=== PATIENT | female | born 1970 | race Caucasian/White ===

== ENCOUNTER 2022-06-28 13:17 | Outpatient (REF) | payer OTHER, SELFPAY ==
--- NOTE | ~2022-06-28 | MM_ITS ---
EXAMINATION: MM SCREENING DIGITAL BREAST TOMOSYNTHESIS, BILATERAL CLINICAL INFORMATION: Screening. Asymptomatic. The lifetime risk of breast cancer based on the Tyrer-Cuzick Model is 18.3%. COMPARISON: Mammography: None. TECHNIQUE: Digital breast tomosynthesis is performed in both the craniocaudal and mediolateral oblique views along with computer-aided detection (CAD). Synthesized 2D images are generated from the tomosynthesis. FINDINGS: There are scattered areas of fibroglandular density (ACR BI-RADS breast composition Category b). RIGHT BREAST: About the superior medial aspect of the breast approximately 4 cm from nipple there is an oval circumscribed density measuring approximately 6 mm in length. About the inferior aspect there is a partially circumscribed approximately 1.1 cm density lying 8.5 cm from nipple. No suspicious calcifications noted. LEFT BREAST: About the deep lateral aspect there is a circumscribed bilobed density approximately 11.5 cm from the nipple. About the upper outer aspect anterior breast there is a 6 mm density present. Further evaluation with spot compression views and possible ultrasound recommended. MM/MM tomosynthesis screening BI IMPRESSION: Bilateral breast densities for further evaluation. ASSESSMENT: BI-RADS 0: Incomplete - Need Additional Imaging Evaluation RECOMMENDATION: Routine annual mammography screening. This patient's information was entered into a reminder system with a target due date for their next mammogram.
== END 2022-06-28 13:18 | disposition home or self-care (01) ==
LOC: HO.MAMMO 13:17
PROVIDERS: PCP Internal Medicine; Visit Provider Internal Medicine
DX: Z12.31 Encounter for screening mammogram for malignant neoplasm of breast (principal)
CPT/HCPCS: 77063; 77067

== ENCOUNTER 2022-08-07 14:46 | Outpatient (REF) | payer OTHER, SELFPAY ==
--- NOTE | ~2022-08-07 | US_ITS ---
EXAMINATION: MM DIAGNOSTIC DIGITAL BREAST TOMOSYNTHESIS, BILATERAL US DIAGNOSTIC ULTRASOUND BREAST, BILATERAL CLINICAL INFORMATION: Recall from screening for bilateral nodularity. TC score 18%. COMPARISON: Mammography: 06/28/2022; outside left mammography 04/09/2019 and bilateral mammography 03/31/2019 ([facility]). TECHNIQUE: Digital breast tomosynthesis is performed. 2D images are generated from the tomosynthesis. The following views are obtained: Bilateral spot CC, bilateral spot ML. Ultrasound of each breast is performed using grayscale imaging and color Doppler without and with harmonics. Left breast is imaged 1:00 through 5:00 position and right breast lower inner quadrant. FINDINGS: There are scattered areas of fibroglandular density (ACR BI-RADS breast composition Category b). Left Mammography: Recent screening mammography notes an asymmetric density central outer breast approximately 11 cm from nipple. The finding is decreased in size from prior outside mammography 2019 and therefore not of clinical significance. There is some minor stable duct ectasia outer anterior left breast with a small benign-appearing circumscribed nodule 3:30 o'clock position measuring approximately 0.5 cm. Left Ultrasound: Left breast ultrasound demonstrates minor minor duct ectasia corresponding to current and prior mammography. No intraluminal echogenicity or color flow. The circumscribed nodule corresponds to a simple cyst 3:00 position 5 cm from nipple measuring approximately 0.5 x 0.3 cm. Right Mammography: Recent screening mammography nodes oval asymmetric density medial breast approximately 8 cm from nipple. This is stable when compared with prior outside mammography 2019 and therefore not of clinical significance. There is a circumscribed benign-appearing nodule 6:00 position mid depth measuring approximately 1.0 x 0.7 x 0.7 cm. Right Ultrasound: The circumscribed benign-appearing oval nodule mid lower right breast is not visualized on ultrasound. There is no cystic or solid mass or architectural abnormality. Short interval follow-up right mammography is recommended. Results are discussed with the patient at time of visit. US/US breast LT limited IMPRESSION: Left: -Incidental benign simple cyst anterior 3:00 position corresponding to small nodule on recent screening. Right: -Benign-appearing faint circumscribed asymmetry mid 6:00 position without ultrasound correlate. ASSESSMENT: BI-RADS 3: Probably Benign RECOMMENDATION: Diagnostic right mammography in 6 months. This patient's information was entered into a reminder system with a target due date for their next mammogram.
--- NOTE | ~2022-08-07 | US_ITS ---
EXAMINATION: MM DIAGNOSTIC DIGITAL BREAST TOMOSYNTHESIS, BILATERAL US DIAGNOSTIC ULTRASOUND BREAST, BILATERAL CLINICAL INFORMATION: Recall from screening for bilateral nodularity. TC score 18%. COMPARISON: Mammography: 06/28/2022; outside left mammography 04/09/2019 and bilateral mammography 03/31/2019 ([facility]). TECHNIQUE: Digital breast tomosynthesis is performed. 2D images are generated from the tomosynthesis. The following views are obtained: Bilateral spot CC, bilateral spot ML. Ultrasound of each breast is performed using grayscale imaging and color Doppler without and with harmonics. Left breast is imaged 1:00 through 5:00 position and right breast lower inner quadrant. FINDINGS: There are scattered areas of fibroglandular density (ACR BI-RADS breast composition Category b). Left Mammography: Recent screening mammography notes an asymmetric density central outer breast approximately 11 cm from nipple. The finding is decreased in size from prior outside mammography 2019 and therefore not of clinical significance. There is some minor stable duct ectasia outer anterior left breast with a small benign-appearing circumscribed nodule 3:30 o'clock position measuring approximately 0.5 cm. Left Ultrasound: Left breast ultrasound demonstrates minor minor duct ectasia corresponding to current and prior mammography. No intraluminal echogenicity or color flow. The circumscribed nodule corresponds to a simple cyst 3:00 position 5 cm from nipple measuring approximately 0.5 x 0.3 cm. Right Mammography: Recent screening mammography nodes oval asymmetric density medial breast approximately 8 cm from nipple. This is stable when compared with prior outside mammography 2019 and therefore not of clinical significance. There is a circumscribed benign-appearing nodule 6:00 position mid depth measuring approximately 1.0 x 0.7 x 0.7 cm. Right Ultrasound: The circumscribed benign-appearing oval nodule mid lower right breast is not visualized on ultrasound. There is no cystic or solid mass or architectural abnormality. Short interval follow-up right mammography is recommended. Results are discussed with the patient at time of visit. US/US breast RT limited IMPRESSION: Left: -Incidental benign simple cyst anterior 3:00 position corresponding to small nodule on recent screening. Right: -Benign-appearing faint circumscribed asymmetry mid 6:00 position without ultrasound correlate. ASSESSMENT: BI-RADS 3: Probably Benign RECOMMENDATION: Diagnostic right mammography in 6 months. This patient's information was entered into a reminder system with a target due date for their next mammogram.
== END 2022-08-07 14:47 | disposition home or self-care (01) ==
LOC: HO.MAMMO 14:46
PROVIDERS: PCP Internal Medicine; Visit Provider Internal Medicine
DX: R92.8 Other abnormal and inconclusive findings on diagnostic imaging of breast (principal)
CPT/HCPCS: 76642; 77062; 77066

== ENCOUNTER 2024-06-09 14:43 | Outpatient (AMB) | payer OTHER, SELFPAY ==
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
[2024-06-09 15:06] VITALS: BP 100/90; PULSE 143; RESP 16; TEMP 36.8; O2SAT 98; BMI 43.3
== END 2024-06-09 15:51 | disposition home or self-care (01) ==
PROVIDERS: PCP Family Medicine; Visit Provider Family Medicine
DX: M19.90 Unspecified osteoarthritis, unspecified site (principal); M25.50 Pain in unspecified joint; E66.01 Morbid (severe) obesity due to excess calories; Z68.41 Body mass index [BMI] 40.0-44.9, adult; M16.9 Osteoarthritis of hip, unspecified; L40.9 Psoriasis, unspecified; Z13.31 Encounter for screening for depression; F41.8 Other specified anxiety disorders; F43.10 Post-traumatic stress disorder, unspecified
CPT/HCPCS: 96127; 99204

== ENCOUNTER 2024-07-08 15:06 | Outpatient (REF) | payer OTHER, SELFPAY ==
[2024-07-08 17:54] LABS: MANUAL DIFF FLAG NO
[2024-07-08 18:12] LABS: Basophils Percent Auto 0.3 % (0-2); Eosinophils Absolute Auto 0.2 X10*3/uL (0.0-0.4); Eosinophils Percent Auto 2.1 % (0-4); Hematocrit 42.8 % (37.0-47.0); Hemoglobin 14.7 g/dl (12.0-16.0); Imm Gran Abs Auto 0.03 X10*3/uL (0.00-0.03); Imm Gran Pct Auto 0.3 % (0.0-0.4); Lymphocytes Absolute Auto 1.1 X10*3/uL (1.2-4.9); Lymphocytes Percent Auto 10.4 % (20-40); Mean Corpuscular HGB Conc 34.3 g/dl (31.0-35.0); Mean Corpuscular Hemoglobin 31.1 pg (27.0-33.0); Mean Corpuscular Volume 90.5 fL (80.0-98.0); Mean Platelet Volume 9.9 fL (9.4-12.3); Monocytes Absolute Auto 1.1 X10*3/uL (0.1-1.2); Monocytes Percent Auto 10.4 % (2-11); Neutrophils Absolute Auto 8.2 x10*3/uL (2.0-8.3); Neutrophils Percent Auto 76.5 % (45-73); Platelet Count 293 X10*3/uL (160-400); Red Blood Count 4.73 X10*6/uL (4.20-5.50); Red Cell Distribution Width 15.9 % (11.0-16.0); White Blood Count 10.7 X10*3/uL (4.8-10.8)
[2024-07-08 19:08] LABS: Erythrocyte Sedimentation Rate 25 MM/HR (0-20)
[2024-07-08 19:19] LABS: Alanine Aminotransferase 34 U/L (0-31); Albumin Level 4.3 g/dL (3.5-5.0); Alkaline Phosphatase 101 U/L (39-117); Anion Gap 18 (12-20); Aspartate Amino Transferase 52 U/L (5-31); Bilirubin Total 1.9 mg/dL (0.0-1.0); Blood Urea Nitrogen 11 mg/dL (9-16); Calcium 9.7 mg/dL (8.4-10.2); Carbon Dioxide 23 mmol/L (22-29); Chloride 102 mmol/L (96-108); Cholesterol 209 mg/dL (<200); Estimated Glomerular Filt Rate 60; Glucose Fasting 110 mg/dL (60-99); HDL Cholesterol 70 mg/dL (>40); LDL Cholesterol Calculated 120 mg/dL (<100); Potassium 3.5 mmol/L (3.3-5.1); Sodium 139 mmol/L (135-145); Total Protein 8.2 g/dL (6.5-8.0); Triglycerides 97 mg/dL (<150)
[2024-07-08 19:34] LABS: TSH reflex Free T4 1.61 uIU/mL (0.32-4.0)
[2024-07-08 20:55] LABS: Rheumatoid Factor 15.3 IU/mL (<15.0)
[2024-07-08 21:16] LABS: Prostate Specific Antigen Scr < 0.10 ng/mL
[2024-07-09 20:53] LABS: CRP High Sensitivity 8.6 mg/L
[2024-07-13 12:09] LABS: Anti Nuclear Antibody Screen NEGATIVE (NEGATIVE)
== END 2024-07-08 15:07 | disposition home or self-care (01) ==
LOC: HO.WFDLDS 15:06
PROVIDERS: Visit Provider Family Medicine
DX: Z00.00 Encounter for general adult medical examination without abnormal findings (principal); M25.50 Pain in unspecified joint
CPT/HCPCS: 36415; 80053; 80061; 84153; 84443; 85025; 85652; 86038; 86141; 86431

== ENCOUNTER 2024-07-22 17:23 | Outpatient (REF) | payer OTHER, SELFPAY ==
[2024-07-22 17:36] LABS: Appearance Urine Turbid; Color Urine BROWN; Glucose Urine UA Negative (Negative); Leukocyte Esterase Urine Small (1+) (Negative); Nitrite Urine Positive (Negative); Specific Gravity - Urine 1.025 (1.005-1.025); UMIC TRIGGER UA YES; Urine Blood Negative (Negative); Urine Ketones Trace mg/dL (Negative); Urine Protein 30 (1+) mg/dL (Neg-Trace)
[2024-07-22 17:56] LABS: Bacteria Urine 2+ (None Seen); Calcium Oxalate Crystals Urine Present; Hyaline Casts Urine 0-2 /LPF (0-2); Squamous Epithelial Cell Urine >20 /HPF (0-2); WBC Urine >50 /HPF (0-5)
[2024-07-22 18:04] LABS: Microalbum/Creatinine Ratio Ur 14.4 ug/mg cr (<30)
== END 2024-07-22 17:24 | disposition home or self-care (01) ==
LOC: HO.LNP 17:23
PROVIDERS: Visit Provider Family Medicine
DX: I10 Essential (primary) hypertension (principal)
CPT/HCPCS: 81001; 82043; 82570

== ENCOUNTER 2024-07-23 14:19 | Outpatient (AMB) | payer OTHER, SELFPAY ==
--- NOTE | 2024-07-23 14:25 | A.OFFPC_ITS ---
Vital Signs 07/23/24 14:32 Height 5 ft 8 in Weight 280 lb 4 oz BMI 42.6 BP 120/80 Blood Pressure Location Lt brachial Position Sitting Respiration 16 Pulse 126 H Pulse Source Pulse Oximeter Temp 97.6 F Temp Source Tympanic Pulse Oximetry (%) 96 Oxygen Delivery Method Room Air Intake Visit Reasons: CPE with f/u labs and health maint. 30 mins Intake Note: CPE Is last menstrual period known: No Post menopausal: Yes Patient : No Allergies No Known Allergies Allergy (Verified 07/23/24 14:26) Medication List - Last Reconciled 07/23/24 by Misbah Huertas MD duloxetine (Cymbalta) 20 mg PO BID 30 days naproxen 500 mg PO BID PRN 30 days omeprazole 20 mg PO DAILY 30 days sulfamethoxazole-trimethoprim 800-160 mg (Bactrim DS) 1 tab PO Q12H 5 days Tobacco use date assessed: 07/23/24 Dental Screening Dental Screen Date: 07/23/24 Did you have a dental visit in the last 12 months?: No Did you have a dental problem in the last 6 months where you did not have access to dental care?: Yes HPI CPE with f/u labs and health maint. 30 mins HPI Details 54 y/o female presents for an extended e xam with f/u labs and health maintenance. Labs drawn 07/08/24. Reviewed labs with pt. Elevated liver enzymes - AST 52, ALT 34. CRP elevated at 8.6. Triglycerides 97. TC 209. LDL 120. HDL 70. Elevated fasting glucose of 110. A1c today 07/23/24 is 4.3%. Blood pressure today 120/80, 126p. She notes she drinks plenty of water. 2+ urine bacteria seen. She notes some days of urinary frequency. She reports decreased hearing. HPI Comments History of Present Illness Details Documentation assistance for Misbah Huertas MD, was provided by Bart Clark,? Manufacturing Technologist on 07/23/2024 at 2:45 PM EST. I, Dr. Huertas, have read, observed, and verified documentation. [facility] Medical History (Updated 07/23/24 @ 15:18 by Bart Clark) Depression Anxiety Psoriasis High cholesterol High blood pressure Family History (Updated 06/09/24 @ 15:23 by Ab Wilson MA) Father Asthma High blood pressure High cholesterol Diabetes Cardiovascular disease Mother High blood pressure High cholesterol Diabetes Lung cancer Alcohol abuse Social History (Updated 07/23/24 @ 14:28 by Ab Wilson MA) Housing: House Patient Tobacco Use Status: Never used Tobacco e-Cigarette/Vaping Use: Currently Using Second Hand Smoke Exposure: No service: No Current occupational status: unemployed Current occupational exposures/hazards: No Cognitive needs: No Hearing needs: No Vision needs: Yes Questionnaire PHQ-9 Over the last 2 weeks, how often have you been bothered by any of the following problems? 1. Little interest or pleasure in doing things: several days 2. Feeling down, depressed, or hopeless: nearly every day 3. Trouble falling or staying asleep, or sleeping too much: nearly every day 4. Feeling tired or having little energy: nearly every day 5. Poor appetite or overeating: not at all 6. Feeling bad about yourself - or that you are a failure or have let yourself or your family down: not at all 7. Trouble concentrating on things, such as reading the newspaper or watching television: not at all 8. Moving or speaking so slowly that other people could have noticed. Or the opposite - being so fidgety or restless that you have been moving around a lot more than usual: not at all 9. Thoughts that you would be better off or of hurting yourself in some way: not at all Total score: 10 Depression Screening Interpretation: Positive Depression Screening Done: Yes 73173 - PHQ-9 Billing: Yes Source: Developed by Drs. Nadeem Diana, Glenys Aaron, Zohaib King and colleagues, with an educational rasheeda from [employer]. Thrive Questionnaire Date Thrive assessed: 07/23/24 I am a: Patient What is your living situation today?: I have a steady place to live Within the past 12 months, did the food you bought not last and you didn't have the money to get more?: Never true Within the past 12 months, did you worry whether your food would run out before you got money to buy more?: Never true Do you have trouble paying for medicines?: No Do you have trouble getting transportation to medical appointments?: No Do you have trouble paying your heating and electricity bill?: No Do you have trouble taking care of your child, family member or friend?: No Do you have trouble with day-to-day activities such as bathing, preparing meals, shopping, managing finances, etc.?: Yes Are you currently unemployed and looking for a job?: No Are you interested in more education?: Yes Please select the resources that you would like help with: None Currently or been in a relationship where the following occur: No concerns reported THRIVE Score: 0 AUDIT C Alcohol Use Questionnaire (AUDIT-C) 1. How often do you have a drink containing alcohol?: 2-4 times a month 2. How many drinks containing alcohol do you have on a typical day when you are drinking?: 3 or 4 3. How often do you have six or more drinks on one occasion?: Never Total Score: 3 ANA-7 AMB Questionnaire ANA-7 Date ANA - 7 assessed: 07/23/24 Feeling nervous, anxious, or on edge: 1 = Several days Not being able to stop or control worryin = Not at all Worrying too much about different things: 1 = Several days Trouble relaxin = Nearly every day Being so restless that it is hard to sit still: 0 = Not at all Becoming easily annoyed or irritable: 0 = Not at all Feeling afraid as if something awful might happen: 0 = Not at all Total ANA-7 score (0-4 normal; 5-9 mild; 10-14 moderate; 15-21 severe): 5 Source: Developed by Drs. Nadeem Diana, Glenys Aaron, Zohaib King and colleagues, with an educational rasheeda from [employer]. ANA-7 Assessment Billing ANA-7 Assessment Tool: ANA-7 Assessment 82863 Review of Systems Const Denies chills, Denies fatigue, Denies fever(s), Denies headache(s) and Denies weakness Eyes Denies change in vision ENT Denies dizziness, Denies headache(s), Denies hearing loss, Denies nasal congestion, Denies sinus pain, Denies sinus pressure and Denies sore throat Card Denies chest pain, Denies lightheadedness, Denies dyspnea and Denies other (pal pitations) Resp Denies cough, Denies dyspnea and Denies wheezing GI Denies abdominal pain, Denies melena, Denies hematochezia, Denies change in bowel habits, Denies dyspepsia and Denies nausea Details: Urinary frequency Denies hematuria and Denies dysuria Musc Denies abnormal gait, Denies myalgias, Denies arthralgias, Denies numbness and Denies tingling Skin/Breast Denies rash, Denies unusual bruising and Denies wounds Neuro Denies abnormal gait, Denies dizziness, Denies headache(s), Denies memory loss, Denies numbness, Denies Sensory deficit (Neuro), Denies tingling and Denies weakness Psych Denies anxiety, Denies depression and Denies memory loss Endo Denies cold intolerance, Denies fatigue, Denies heat intolerance, Denies polydipsia and Denies polyuria Scotty/Lymph Denies easy bleeding and Denies easy bruising Aller/Immun Denies wheezing Physical exam (Primary Care) Vital Signs: Last Vital Signs Temp 97.6 F 07/23/24 14:32 Pulse 126 H 07/23/24 14:32 Resp 16 07/23/24 14:32 BP 120/80 07/23/24 14:32 Pulse Ox 96 07/23/24 14:32 Oxygen Delivery Method Room Air 07/23/24 14:32 BMI result Body Mass Index 42.6 Tobacco/Smoking Status: Tobacco use Status Tobacco use date assessed 07/23/24 07/23/24 14:36 Patient Tobacco Use Status Never used Tobacco 07/23/24 14:36 e-Cigarette/Vaping Use Currently Using 07/23/24 14:36 PHQ-9: PHQ-9 Score PHQ-9: Total score 10 07/23/24 14:37 Depression Screening Interpretation: Positive Thrive Assessment: Date of Thrive Assessment Date Thrive assessed 07/23/24 07/23/24 14:36 Currently or been in a relationship where the following occur: No concerns reported Const General: no acute distress, well developed, alert and awake Nutritional Appearance: well nourished and obese morbidly obese Orientation/consciousness: patient oriented x3 HENMT Head: Yes normocephalic and Yes atraumatic Ears: hearing grossly normal bilaterally and TM's normal bilaterally General nose exam: Normal external nose present and Normal nares present Mouth: Normal oral and palatal mucosa present and moist mucous membranes Teeth and gingiva: dentition normal Throat: Yes posterior oropharynx normal Eyes General: appearance normal, both eyes and all related structures Pupils: Equal, round and reactive pupils present and Pupil accommodation reflex normal EOM: EOMs intact bilaterally Neck Neck: Yes normal visual inspection, Yes no lymphadenopathy and Yes trachea midline Thyroid: Thyroid normal Carotids: no bruits Lymphatic: no lymphadenopathy noted Chest Chest palpation & inspection: normal inspection of the chest Resp Effort & Inspection: normal respiratory effort Auscultation: clear to auscultation bilaterally Cardio Rate: regular rate Rhythm: regular rhythm Heart sounds: S1 normal heart sound present, S2 normal heart sound present, no gallops, no murmurs and no rubs Bruits: no abdominal aortic bruits and no carotid bruits GI Palpation (GI): No Abdominal aortic bruit present, Soft to palpation, nontender, No hepatosplenomegaly present and No Rebound tenderness present Auscultation: normal bowel sounds General: Yes no CVA tenderness Back/Spine/Pelvis Back: no CVA tenderness Cervical Spine: cervical ROM normal and No Cervical spine tenderness Thoracic/Lumbar Spine: thoraco-lumbar ROM normal, No pain with thoraco-lumbar ROM, No thoracic spinal tenderness and No lumbar spinal tenderness Skin Lesions: no lesions Rashes: no rashes Trauma: no lacerations or abrasions Wounds: no wounds Nails: normal Neuro General: patient oriented x3 Cranial nerves: Yes Equal, round and reactive pupils present Cognition (Neuro): normal cognition Gait exam (Neuro): Normal gait present Motor exam (neuro): 5/5 motor strength present throughout Sensory Exam: No Sensory deficit (Neuro) Deep tendon reflexes (DTR's): Right patellar reflex intensity grade: 2+ and Left patellar reflex intensity grade: 2+ Extrem General: Yes normal to inspection and No edema Psych Appearance: grossly normal Affect: normal affect Attitude: cooperative Thought process: Normal thought process present Assessment and Plan Assessment & Plan (1) Tachycardia: Code(s): R00.0 - Tachycardia, unspecified Plan: Tachycardia EKG?shows: ?Normal?sinus?rh ythm?at?87?be?p.m.?while?lying?down,?normal?axis,?no?hypertrophy,?no?ST-T-wave?c hanges. Patient?is?working?on?good?hydration May?have?an?element?of?alcohol?withdrawal. (2) Elevated liver enzymes: Code(s): R74.8 - Abnormal levels of other serum enzymes Plan: Mildly?elevated?liver?enzymes. History?of?alcohol?misuse Had?referred?patient?to comprehensive?Care?Clinic Hydrate?well Work?at?weight?loss Avoid?alcohol Will?repeat?in?a?few?months?and?if?labs?are?the?same?or?higher,?will?check ?an?ultrasound (3) High cholesterol: Code(s): E78.00 - Pure hypercholesterolemia, unspecified Plan: LDL?cholesterol?is?too?high.??Goal?is?less?than?100 Encouraged?lifestyle?changes Will?recheck?at?next?blood?draw (4) Gastritis: Code(s): K29.70 - Gastritis, unspecified, without bleeding Plan: Trial?omeprazole Patient?is?referred?to?Gastroenterology (5) Polyarthralgia: Code(s): M25.50 - Pain in unspecified joint Plan: Polyarthralgia?as?well?as?history?of?psoriasis. Possible?psoriatic?arthritis Inflammatory?markers?mildly?elevated Referred?to?Rheumatology (6) Alcohol use: Code(s): Z78.9 - Other specified health status Plan: Had?referred?patient?to?comprehensive Care?Clinic. Patient?has problems?with?phone?service Referred?again.??Please?try?to?reach?out?to?patient?again (7) Breast cancer screening by mammogram: Code(s): Z12.31 - Encounter for screening mammogram for malignant neoplasm of breast Plan: Overdue?for?mammogram Ordered (8) Screening for cervical cancer: Code(s): Z12.4 - Encounter for screening for malignant neoplasm of cervix Plan: Overdue?for?Pap?smear Patient?is?apprehensive?regarding?this - may?need?conscious?sedation/sedation Referred?to?salesperson hearing aids (9) Screening for colon cancer: Code(s): Z12.11 - Encounter for screening for malignant neoplasm of colon Plan: Overdue?for?colonoscopy Referred?to?Gastroenterology (10) Osteoarthritis of hip: Code(s): M16.9 - Osteoarthritis of hip, unspecified Plan: Bilateral?hip?pain?and?patient?notes?history?of?bilateral?hip?osteoarthritis X-rays?were?ordered Patient?did?not?realize?that?she?could?go?get?these?done without?being?scheduled. She?will?get?her?x-rays?done?prior?to?next?visit (11) Decreased hearing: Code(s): H91.90 - Unspecified hearing loss, unspecified ear Plan: Referred?for?audiology?test (12) Bacteria in urine: Code(s): R82.71 - Bacteriuria Plan: Likely?UTI Start?Bactrim?DS?x5?days Hydrate?well (13) Elevated fasting glucose: Code(s): R73.01 - Impaired fasting glucose Plan: Elevated?fasting?blood?sugar?but?A1c?is?less?than?5.0 Will?recheck?fasting?blood?sugar?with?her?next?blood?draw (14) Adult general medical exam: Code(s): Z00.00 - Encounter for general adult medical examination without abnormal findings Plan: 54-year-old?female?presents?for?an?extended?exam Orders: Orders AMB EKG-In Office Today R00.0 - Tachycardia, unspecified MM tomosynthesis screening BI Today Z12.31 - Encounter for screening mammogram for malignant neoplasm of breast Comprehensive [facility]. Panel Fast Today R74.8 - Abnormal levels of other serum enz ymes, Z00.00 - Encounter for general adult medical examination without abnormal findings AMB Hemoglobin A1c Today Z13.9 - Encounter for screening, unspecified Lipid Panel Today E78.00 - Pure hypercholesterolemia, unspecified, Z00.00 - Encounter for general adult medical examination without abnormal findings Referrals 2 Psychiatry Outpatient Consultation Service F41.8 - Other specified anxiety disorders, F43.10 - Post-traumatic stress disorder, unspecified, Z78.9 - Other specified health status Rheumatology Referral L40.9 - Psoriasis, unspecified, M25.50 - Pain in unspecified joint Gastroenterology Referral Z12.11 - Encounter for screening for malignant neoplasm of colon Gastroenterology Referral K29.70 - Gastritis, unspecified, without bleeding, R74.8 - Abnormal levels of other serum enzymes, Z12.11 - Encounter for screening for malignant neoplasm of colon Audiology Referral H91.90 - Unspecified hearing loss, unspecified ear Addiction Medicine Referral Z78.9 - Other specified health status 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9 Breast cancer screening by mammogram Z12.31 Screening for cervical cancer Z12.4 Screening for colon cancer Z12.11 Osteoarthritis of hip M16.9 Decreased hearing H91.90 Bacteria in urine R82.71 Elevated fasting glucose R73.01 Adult general medical exam Z00.00 Additional Codes ANA-7 Assessment Billing - ANA-7 Assessment Tool: ANA-7 Assessment [id number] ([id number])
[2024-07-23 14:32] VITALS: BP 120/80; PULSE 126; RESP 16; TEMP 36.4; O2SAT 96; BMI 42.6
== END 2024-07-23 15:32 | disposition home or self-care (01) ==
PROVIDERS: PCP Family Medicine; Visit Provider Family Medicine
DX: Z00.00 Encounter for general adult medical examination without abnormal findings (principal); R00.0 Tachycardia, unspecified; R74.8 Abnormal levels of other serum enzymes; E78.00 Pure hypercholesterolemia, unspecified; K29.70 Gastritis, unspecified, without bleeding; M25.50 Pain in unspecified joint; Z78.9 Other specified health status; M16.9 Osteoarthritis of hip, unspecified; R82.71 Bacteriuria; R73.01 Impaired fasting glucose
CPT/HCPCS: 93000; 99214; 99396

== ENCOUNTER → 2024-08-13 14:00 | Outpatient (BNV) | payer OTHER, SELFPAY | PROVIDERS: PCP Family Medicine; Visit Provider Internal Medicine | DX: Z12.31 Encounter for screening mammogram for malignant neoplasm of breast (principal) | CPT/HCPCS: 77063; 77067 ==

== ENCOUNTER 2024-08-13 14:01 | Outpatient (REF) | payer OTHER, SELFPAY ==
--- NOTE | ~2024-08-13 | MM_ITS ---
EXAMINATION: MM SCREENING DIGITAL BREAST TOMOSYNTHESIS, BILATERAL CLINICAL INFORMATION: Screening. Asymptomatic. COMPARISON: Mammography: Comparison is made with available priors TECHNIQUE: Digital breast mammography with tomosynthesis is performed in both the craniocaudal and mediolateral oblique views along with computer-aided detection (CAD). FINDINGS: There are scattered areas of fibroglandular density (ACR BI-RADS breast composition Category b). There are no significant masses, abnormal calcifications, or other abnormalities. MM/MM tomosynthesis screening BI IMPRESSION: No mammographic evidence of malignancy. ASSESSMENT: BI-RADS BI-RADS 1 - Negative RECOMMENDATION: Routine annual mammography screening. 1 year F/U This examination should not preclude the clinical evaluation of a suspicious palpable abnormality. This patient's information was entered into a reminder system with a target due date for their next mammogram. Electronically signed by: Jeni Carcamo DO 08/25/2024 01:52 PM EDT
== END 2024-08-13 14:02 | disposition home or self-care (01) ==
LOC: HO.MAMMO 14:01
PROVIDERS: PCP Family Medicine; Visit Provider Family Medicine
DX: Z12.31 Encounter for screening mammogram for malignant neoplasm of breast (principal)
CPT/HCPCS: 77063; 77067

== ENCOUNTER 2024-08-24 12:58 | Outpatient (AMB) | payer OTHER, SELFPAY ==
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
== END 2024-08-24 14:01 | disposition home or self-care (01) ==
PROVIDERS: PCP Family Medicine; Visit Provider Clinical Nurse Specialist Psychiatric/Mental Health
DX: F10.10 Alcohol abuse, uncomplicated (principal); F43.10 Post-traumatic stress disorder, unspecified; F32.9 Major depressive disorder, single episode, unspecified
CPT/HCPCS: 90792

== ENCOUNTER 2024-08-24 12:58 | Outpatient (REF) | payer OTHER, SELFPAY ==
--- NOTE | ~2024-08-24 | XR_ITS ---
EXAMINATION: Single view pelvis and bilateral hips CLINICAL INFORMATION: Osteoarthritis of hip, unspecified M16.9. Patient states pain for the past 10 years but no known injury COMPARISON: None TECHNIQUE: AP view of the pelvis and AP and lateral views of each hip were obtained. FINDINGS: Right hip: Severe osteoarthritis with marked joint space narrowing subchondral sclerosis and probable subchondral cystic change and some flattening of the femoral head likely due to chronic impaction from the arthrosis versus concomitant avascular necrosis. Left hip: Moderate osteoarthritis manifested by joint space narrowing and marginal osteophytes. Degenerative changes of the symphysis pubis. Remaining bone and joints in the pelvis normal. Probable postsurgical changes at the lumbosacral junction. Suspect prior spinal fusion surgery XR/XR hips JIMMY min 3V IMPRESSION: RIGHT HIP: Severe osteoarthritis. Flattening of the femoral head likely due to chronic impaction related to severe arthrosis. Cannot exclude concomitant avascular necrosis with osteochondral collapse LEFT HIP: Moderate osteoarthritis. Electronically signed by: Angel Casarez MD 10/26/2024 10:01 AM RIVKA QUINONES
== END 2024-08-24 12:59 | disposition home or self-care (01) ==
LOC: HO.XRAY 12:58
PROVIDERS: Absent Provider Family Medicine; PCP Family Medicine; Visit Provider Clinical Nurse Specialist Psychiatric/Mental Health
DX: M16.9 Osteoarthritis of hip, unspecified (principal); F10.10 Alcohol abuse, uncomplicated; F43.10 Post-traumatic stress disorder, unspecified; F32.9 Major depressive disorder, single episode, unspecified
CPT/HCPCS: 73522; 90792

== ENCOUNTER 2025-03-28 12:01 | Outpatient (AMB) | payer OTHER, SELFPAY ==
--- NOTE | 2025-03-28 12:27 | A.OFFPC_ITS ---
Vital Signs 03/28/25 12:31 Height 5 ft 8 in Weight 282 lb BMI 42.9 BP 120/80 Blood Pressure Location Lt brachial Position Sitting Respiration 16 Pulse 110 H Pulse Source Pulse Oximeter Temp 98.7 F Temp Source Oral Pulse Oximetry (%) 95 Oxygen Delivery Method Room Air Intake Visit Reasons: REASON FOR VISIT f/u elevated liver enzymes, labs Intake Note: patient was scheduled for lab review she did not get labs done pt will get labs done today. she would also like to follow up on nasal discomfort/ blockage. Allergies No Known Allergies Allergy (Verified 07/23/24 14:26) Tobacco use date assessed: 07/23/24 Dental Screening Dental Screen Date: 07/23/24 HPI REASON FOR VISIT f/u elevated liver enzymes, labs HPI Details 54 y/o female presents to f/u elevated l iver enzymes, labs. No recent labs to review. Hx of polyarthalgia, psoriasis. Complaints of ongoing psoriasis on her arms, forearms. Has complaints of some nasal irritation. HPI Comments History of Present Illness Details Documentation assistance for Misbah Huertas MD, was provided by Bart Clark,? [employer] on 03/28/2025 at 1:13 PM EST. I, Dr. Huertas, have read, observed, and verified documentation. ?? [facility] Medical History (Updated 03/28/25 @ 13:17 by Bart Clark) Depression Anxiety Psoriasis High cholesterol High blood pressure Family History (Updated 06/09/24 @ 15:23 by YASIR Encinas) Father Asthma High blood pressure High cholesterol Diabetes Cardiovascular disease Mother High blood pressure High cholesterol Diabetes Lung cancer Alcohol abuse Social History (Updated 07/23/24 @ 14:28 by YASIR Encinas) Housing: House Patient Tobacco Use Status: Never used Tobacco e-Cigarette/Vaping Use: Currently Using Second Hand Smoke Exposure: No service: No Current occupational status: unemployed Current occupational exposures/hazards: No Cognitive needs: No Hearing needs: No Vision needs: Yes Questionnaire PHQ-9 Over the last 2 weeks, how often have you been bothered by any of the following problems? 1. Little interest or pleasure in doing things: nearly every day 2. Feeling down, depressed, or hopeless: nearly every day 3. Trouble falling or staying asleep, or sleeping too much: nearly every day 4. Feeling tired or having little energy: nearly every day 5. Poor appetite or overeating: nearly every day 6. Feeling bad about yourself - or that you are a failure or have let yourself or your family down: several days 7. Trouble concentrating on things, such as reading the newspaper or watching television: more than half the days 8. Moving or speaking so slowly that other people could have noticed. Or the opposite - being so fidgety or restless that you have been moving around a lot more than usual: not at all 9. Thoughts that you would be better off or of hurting yourself in some way: not at all Total score: 18 Source: Developed by Drs. Nadeem Diana, Glenys Aaron, Zohaib King and colleagues, with an educational rasheeda from [employer]. Thrive Questionnaire Date Thrive assessed: 07/23/24 I am a: Patient What is your living situation today?: I have a steady place to live Within the past 12 months, did the food you bought not last and you didn't have the money to get more?: Never true Within the past 12 months, did you worry whether your food would run out before you got money to buy more?: Never true Do you have trouble paying for medicines?: No Do you have trouble getting transportation to medical appointments?: No Do you have trouble paying your heating and electricity bill?: No Do you have trouble taking care of your child, family member or friend?: No Do you have trouble with day-to-day activities such as bathing, preparing meals, shopping, managing finances, etc.?: No Are you currently unemployed and looking for a job?: I choose not to answer this question Are you interested in more education?: I choose not to answer this question Please select the resources that you would like help with: None Currently or been in a relationship where the following occur: No concerns reported THRIVE Score: 0 AUDIT C Alcohol Use Questionnaire (AUDIT-C) 1. How often do you have a drink containing alcohol?: 2-4 times a month 2. How many drinks containing alcohol do you have on a typical day when you are drinking?: 1 or 2 3. How often do you have six or more drinks on one occasion?: Never Total Score: 2 ANA-7 AMB Questionnaire ANA-7 Date ANA - 7 assessed: 07/23/24 Feeling nervous, anxious, or on edge: 1 = Several days Not being able to stop or control worryin = Nearly every day Worrying too much about different things: 2 = More than half the days Trouble relaxin = Several days Being so restless that it is hard to sit still: 0 = Not at all Becoming easily annoyed or irritable: 3 = Nearly every day Feeling afraid as if something awful might happen: 2 = More than half the days Total ANA-7 score (0-4 normal; 5-9 mild; 10-14 moderate; 15-21 severe): 12 Source: Developed by Drs. Nadeem Diana, Glenys Aaron, Zohaib King and colleagues, with an educational rasheeda from [employer]. Review of Systems Const Denies chills, Denies fatigue, Denies fever(s), Denies headache(s) and Denies weakness ENT Denies dizziness and Denies headache(s) Card Denies dyspnea Resp Denies cough, Denies dyspnea, Denies wheezing and Denies other (shortness of breath) Musc Denies numbness and Denies tingling Neuro Denies dizziness, Denies headache(s), Denies numbness, Denies tingling and Denies weakness Psych Denies anxiety and Denies depression Endo Denies fatigue Aller/Immun Denies wheezing Physical exam (Primary Care) Vital Signs: Last Vital Signs Temp 98.7 F 03/28/25 12:31 Pulse 110 H 03/28/25 12:31 Resp 16 03/28/25 12:31 BP 120/80 03/28/25 12:31 Pulse Ox 95 03/28/25 12:31 Oxygen Delivery Method Room Air 03/28/25 12:31 BMI result Body Mass Index 42.9 Tobacco/Smoking Status: Tobacco use Status Tobacco use date assessed 07/23/24 03/28/25 12:27 Patient Tobacco Use Status Never used Tobacco 03/28/25 12:27 e-Cigarette/Vaping Use Currently Using 03/28/25 12:27 PHQ-9: PHQ-9 Score PHQ-9: Total score 18 03/28/25 12:47 Thrive Assessment: Date of Thrive Assessment Date Thrive assessed 07/23/24 03/28/25 12:27 Currently or been in a relationship where the following occur: No concerns reported Const General: well developed; No acute distress Nutritional Appearance: well nourished and obese morbidly obese Orientation/consciousness: patient oriented x3 HENMT Head: Yes normocephalic and Yes atraumatic Eyes General: appearance normal, both eyes and all related structures Pupils: Equal, round and reactive pupils present EOM: EOMs intact bilaterally Resp Effort & Inspection: normal respiratory effort Neuro General: patient oriented x3 and gait normal Cranial nerves: Yes Equal, round and reactive pupils present Psych Affect: normal affect Coding Level of Care Code Est Pt Level 4 (36646) Diagnoses Polyarthralgia M25.50 Psoriasis L40.9 Elevated liver enzymes R74.8 Nasal discomfort J34.89 Breast cancer screening by mammogram Z11.09 Osteoarthritis of hip M16.9 Assessment & Plan Assessment & Plan (1) Polyarthralgia: Code(s): M25.50 - Pain in unspecified joint Category: Medical Plan: Polyarthralgia?and?psoriasis Had?ordered?inflammatory?markers?but?she?has?not?gotten?labs?drawn?yet.??Encoura ged?her?to?get?her?labs?drawn Had?referred?her?to?Rheumatology?and?she?has?appointment?in?October. Would?ask?for?sooner?appointment?if?indicated?by?labs (2) Psoriasis: Code(s): L40.9 - Psoriasis, unspecified Category: Medical Plan: As?above Also?has?worsened?psoriasis?arms. Will?try?a?steroid?cream (3) Elevated liver enzymes: Code(s): R74.8 - Abnormal levels of other serum enzymes Category: Medical Plan: Labs?are?ordered.??Encouraged?her?to?get?these?drawn (4) Nasal discomfort: Code(s): J34.89 - Other specified disorders of nose and nasal sinuses Category: Medical Plan: Trial?nasal?steroid (5) Breast cancer screening by mammogram: Code(s): Z11.09 - Encounter for screening mammogram for malignant neoplasm of breast Category: Medical Plan: Mammogram?negative?for?malignancy Continue?annual?screening (6) Osteoarthritis of hip: Code(s): M16.9 - Osteoarthritis of hip, unspecified Category: Medical Plan: X-ray?shows?severe?osteoarthritis?of?the?hip?and?can?not?rule?out?of?other abnormalities?such?as?avascular?necrosis Referred?to?Ortho Orders: Referrals Orthopedics Referral M16.9 - Osteoarthritis of hip, unspecified Medications: New fluticasone propionate 50 mcg/actuation (Flonase Allergy Relief) administer into each nostril 1 spray intranasal Q12H 30 days 16 grams 2RF triamcinolone acetonide 0.5% 1 appl topical BID 15 days 45 grams 2RF
[2025-03-28 12:31] VITALS: BP 120/80; PULSE 110; RESP 16; TEMP 37.1; O2SAT 95; BMI 42.9
== END 2025-03-28 13:04 | disposition home or self-care (01) ==
LOC: HO.HMCFM 12:01
PROVIDERS: PCP Family Medicine; Visit Provider Family Medicine
DX: M25.50 Pain in unspecified joint (principal); L40.9 Psoriasis, unspecified; R74.8 Abnormal levels of other serum enzymes; J34.89 Other specified disorders of nose and nasal sinuses; Z12.31 Encounter for screening mammogram for malignant neoplasm of breast; M16.9 Osteoarthritis of hip, unspecified

== ENCOUNTER → 2025-03-28 12:01 | Outpatient (BNVA) | payer OTHER, SELFPAY | PROVIDERS: PCP Family Medicine; Visit Provider Family Medicine | DX: M25.50 Pain in unspecified joint (principal); L40.9 Psoriasis, unspecified; R74.8 Abnormal levels of other serum enzymes; J34.89 Other specified disorders of nose and nasal sinuses; M16.9 Osteoarthritis of hip, unspecified | CPT/HCPCS: 99212 ==

== ENCOUNTER 2025-04-07 13:30 | Outpatient (REF) | payer OTHER, SELFPAY ==
[2025-04-07 17:51] LABS: Alanine Aminotransferase 23 U/L (0-31); Albumin Level 4.5 g/dL (3.5-5.0); Alkaline Phosphatase 81 U/L (39-117); Anion Gap 16 (12-20); Aspartate Amino Transferase 35 U/L (5-31); Bilirubin Total 1.2 mg/dL (0.0-1.0); Blood Urea Nitrogen 11 mg/dL (9-16); Carbon Dioxide 22 mmol/L (22-29); Chloride 107 mmol/L (96-108); Cholesterol 186 mg/dL (<200); Estimated Glomerular Filt Rate > 60; Glucose Fasting 90 mg/dL (60-99); HDL Cholesterol 49 mg/dL (>40); LDL Cholesterol Calculated 117 mg/dL (<100); Potassium 3.7 mmol/L (3.3-5.1); Sodium 141 mmol/L (135-145); Total Protein 7.9 g/dL (6.5-8.0); Triglycerides 104 mg/dL (<150)
== END 2025-04-07 13:31 | disposition home or self-care (01) ==
LOC: HO.WFDLDS 13:30
PROVIDERS: Visit Provider Family Medicine
DX: Z00.00 Encounter for general adult medical examination without abnormal findings (principal); R74.8 Abnormal levels of other serum enzymes; E78.00 Pure hypercholesterolemia, unspecified
CPT/HCPCS: 36415; 80053; 80061

== ENCOUNTER 2025-05-30 13:11 | Outpatient (AMB) | payer OTHER, SELFPAY ==
--- OUTSIDE RECORDS SUMMARY | 2023-03-27 14:30 | XMS_ITS | Encounter Summary ---
Author Organization [facility] Address [address] [place] [address] Phone Care Team Providers Care Line Lead Name Role Phone Berna Canchola MD Primary Care Prov ider Encounter Details Date Type Department Care Team (Late st Contact Info) Description 03/27/2023 2:30 PM EDT Hospital Encounter [facility] [address] [place] [phone] [address] [place] [address] [place] [address] [email or web address] Social History Tobacco Use Types Packs/Day [...] on filedocumented in this encounter Care Teams Line Lead Relationship Specialty Start Date End Date Berna Canchola MD [address] [place] [id number] PCP - General Internal Medicine 03/27/23 documented as of this encounter Additional Source Comments The information contained in this document represents components of the legal health record. It is not the complete legal health record.[facility]
[2025-05-30 13:15] VITALS: BMI 42.9
--- NOTE | 2025-05-30 13:15 | MHC.OFFVIS ---
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 Patient reports that she has been having pain in this right hip ongoing for about 8 years. She has had a cortisone injection about5 years ago that was unhelpful. She does not take anything for her pain as it has not been helpful. Allergies No Known Allergies Allergy (Verified 07/23/24 14:26) HPI HPI ECONOMIST RESEARCH ASSISTANT-Right hip OA: Details: Lata is a 54 year old female who presents today as a New Patient with complaints of Right Hip Pain. Patient reports that she has been having pain in this right hip ongoing for about 8 years. She has had a cortisone injection about5 years ago that was unhelpful. She does not take anything for her pain as it has not been helpful. She went to a orthopedic surgeon many years ago but was told that she was too heavy for surgery. She has been very hesitant to see a surgeon because of this but it has gotten to the point where she can not tolerate daily activities. The pain localizes to right groin. She uses a walker to walk. She would like to be able to ambulate comfortably without pain. She would also however like to be able to engage in basic daily activities without pain. She is extremely dysfunctional because of her hip immobility and pain. [facility] Medical History Depression Anxiety Psoriasis High cholesterol High blood pressure Surgical History (Updated 05/30/25 @ 13:21 by Eloise Nance CMA) History of lumbar fusion Family History Father Asthma High blood pressure High cholesterol Diabetes Cardiovascular disease Mother High blood pressure High cholesterol Diabetes Lung cancer Alcohol abuse Social History Housing: House Patient Tobacco Use Status: Never used Tobacco e-Cigarette/Vaping Use: Currently Using Second Hand Smoke Exposure: No service: No Current occupational status: unemployed Current occupational exposures/hazards: No Cognitive needs: No Hearing needs: No Vision needs: Yes Physical Exam Vital Signs: BMI result Body Mass Index 42.9 Const General: cooperative, healthy appearing, no acute distress, well developed and alert HEENT Head: Yes normal to inspection, Yes normocephalic and Yes atraumatic Mouth: moist mucous membranes Eyes General: appearance normal, both eyes and all related structures EOM: EOMs intact bilaterally Chest Other: no audible wheezing. Resp Other: No audible wheezing Effort & Inspection: normal respiratory effort Cardio Other: Radial pulse palpable with no rythmic abnormalities Back/Spine/Pelvis Cervical Spine: normal cervical lordosis Skin General skin exam: no rashes or lesions noted Neuro General: no focal motor deficits Extrem Other: Breanne has severe gait antalgia. I can not rotator right hip without severe pain. Her dorsalis pedis pulses intact and she is neurologically intact in the bilateral lower extremities. Her skin is clean dry and intact and healthy appearing. She has no internal rotation of the right hip and doing so reproduces pain in her groin. Her left hip has also mildly diminished range of motion but is tolerable to her. Psych Appearance: grossly normal and well kempt Mental Status: mental status grossly normal Speech and movement: Normal speech and movement present Affect: normal affect Attitude: cooperative Results Reviewed Results Reviewed: I personally reviewed relevant radiographs. Severe osteoarthritis of the right hip. There is flattening of the femoral head likely due to chronic impaction but can not exclude concomitant avascular necrosis with osteochondral collapse. Assessment & Plan Assessment & Plan (1) Osteoarthritis of hip: Code(s): M16.9 - Osteoarthritis of hip, unspecified Category: Medical Plan: This is a 54-year-old woman with severe osteoarthritis of the right hip. She can not function and I recommend a hip replacement. She has a BMI near 40 and we discussed this. I think given her symptoms and the severity of her radiographic findings and her limitations I recommend hip arthroplasty. She also has a history of psoriasis and past history of alcohol abuse. She states she has been stable and not drinking. She does understand that drinking can compromise the results and increase the risk of postoperative complications. Her bilirubin and ALT are slightly elevated. Overall I think her primary risk factor is her weight and I think this is are acceptable risk to go forward. I certainly think we should encourage her to continue to lose weight prior to surgery. I also discussed the surgery with Lata as well as I discussed the risks benefits and alternatives including but not limited to the risk of pain, infection, stiffness, need for further surgery as well as potential medical complications such as blood clots, pulmonary embolism and cardiac complications. All her questions were answered to the best of my abilities. We will begin the preoperative clearance process. Coding Level of Care Code New Pt Level 4 (85988) Diagnoses Osteoarthritis of hip M16.9
== END 2025-05-30 13:53 | disposition home or self-care (01) ==
LOC: HO.HOS 13:11
PROVIDERS: PCP Family Medicine; Visit Provider Orthopaedic Surgery
DX: M16.9 Osteoarthritis of hip, unspecified (principal)
CPT/HCPCS: 99204

== ENCOUNTER → 2025-05-30 13:11 | Outpatient (BNVA) | payer OTHER, SELFPAY | PROVIDERS: PCP Family Medicine; Visit Provider Orthopaedic Surgery | DX: M25.551 Pain in right hip (principal); M16.11 Unilateral primary osteoarthritis, right hip | CPT/HCPCS: 99202 ==

== ENCOUNTER 2025-07-25 15:58 | Outpatient (AMB) | payer OTHER, SELFPAY ==
--- OUTSIDE RECORDS SUMMARY | 2023-03-27 14:30 | XMS_ITS | Encounter Summary ---
Author Organization [facility] Address [address] [place] [address] Phone Care Team Providers Care Pressed Or Blown Glass Worker Name Role Phone Berna Canchola MD Primary Care Prov ider Encounter Details Date Type Department Care Team (Late st Contact Info) Description 03/27/2023 2:30 PM EDT Hospital Encounter [facility] [address] [place] [id number] [address] [place] [address] [place] [address] [email or web address] Social History Tobacco Use Types Packs/Day Years Used Date Smoking Tobacco: Former Cigarettes Smokeless Tobacco: Never Education Answer Date Recorded Are you interested in more education? Not on ollie e 03/27/2023 Are you concerned about learning? Not on file 03/27/2023 No 03/27/2023 No 03/27/2023 Digital Access Answer Date Recorded No 04/05/2023 No 04/05/2023 No 04/05/2023 Reliable internet access at home? Not on file 04/05/2023 Device with a working camera? Not on file Comments Unknown Sex and Gender Information Value Date Recorded Sex Assigned at Not on file Legal Sex Female 1:37 PM EDT Gender Identity Not on file Sexual Orientation Not on file documented as of this encounter Plan of Treatment Not on file documented as of this encounter Procedures Procedure Name Priority Date/Time Associated Diagnosis Comments XR CHEST PA AND LATERAL 2 VIEWS Urgent/patient waiting 03/27/2023 2:36 PM EDT Community acquired pneumonia of left lower lobe of lung documented in this encounter Results * XR CHEST PA AND LATERAL 2 VIEWS (03/27/2023 2:36 PM EDT) Anatomical Region Laterality Modality Chest Computed Radiogr aphy 03/27/2023 2:44 PM EDT Impressions 03/27/2023 2:44 PM EDT Slightly more coalescing right lower lung interstitial opacities obscuring the right heart border, may represent bronchovascular crowding and/or a developing infectious or inflammatory process in the appropriate clinical context. Recommend 4-6 week follow-up to resolution. A clinically significant result was communicated and documented via a closed loop communication system. Narrative 03/27/2023 2:44 PM EDT XR CHEST PA AND LATERAL 2 VIEWS COMPARISON: None. FINDINGS: Devices/Tubes/Lines: None. Lungs: Low lung volumes. Slightly more coalescing right lower lung interstitial opacities obscuring the right heart border. Pleura: No pleural effusion or pneumothorax. Heart/Mediastinum: Borderline-enlarged cardiac silhouette in the setting of low lung volumes. Bones/Soft Tissues: No significant skeletal abnormality. Procedure Note Leslie Jiang MD - 03/27/2023 XR CHEST PA AND LATERAL 2 VIEWS COMPARISON: None. FINDINGS: Devices/Tubes/Lines: None. Lungs: Low lung volumes. Slightly more coalescing right lower lunginterstitial opacities obscuring the right heart border. Pleura: No pleural effusion or pneumothorax. Heart/Mediastinum: Borderline-enlarged cardiac silhouette in the settingof low lung volumes. Bones/Soft Tissues: No significant skeletal abnormality. IMPRESSION: Slightly more coalescing right lower lung interstitial opacities obscuringthe right heart border, may represent bronchovascular crowding and/or adeveloping infectious or inflammatory process in the appropriate clinicalcontext. Recommend 4-6 week follow-up to resolution. A clinically significant result was communicated and documented via aclosed loop communication system. [facility] XR CHEST Final Resul t documented in this encounter Visit Diagnoses Not on filedocumented in this encounter Care Teams Pressed Or Blown Glass Worker Relationship Specialty Start Date End Date Berna Canchola MD [address] [place] [id number] PCP - General Internal Medicine 03/27/23 documented as of this encounter Additional Source Comments The information contained in this document represents components of the legal health record. It is not the complete legal health record.[facility]
[2025-07-25 16:05] VITALS: BP 132/74; PULSE 116; O2SAT 96; BMI 42.1
--- NOTE | 2025-07-25 16:05 | MHC.PC.OV ---
Vital Signs 07/25/25 16:05 Height 5 ft 8 in Weight 277 lb BMI 42.1 BP 132/74 Blood Pressure Location Rt brachial Position Sitting Pulse 116 H Pulse Source Pulse Oximeter Pulse Oximetry (%) 96 Oxygen Delivery Method Room Air Intake Visit Reasons: CPE with f/u labs and health maint. Allergies No Known Allergies Allergy (Verified 07/25/25 16:08) Medication List - Last Reconciled 07/25/25 by Misbah Huertas MD No Known Home Meds Tobacco use date assessed: 07/25/25 Dental Screening Dental Screen Date: 07/25/25 Did you have a dental visit in the last 12 months?: No Did you have a dental problem in the last 6 months where you did not have access to dental care?: No Was dental information given to patient?: Patient declined HPI CPE with f/u labs and health maint. HPI Details 55 y/o female presents for a CPE with f/u labs and health maintenance. Labs drawn 04/07/25. reviewed Labs with pt. AST 35. ALT 23. Triglycerides 104. TC 186. LDL 117. HDL 49. Continues to f/u with orthopedics for hip pain. HPI Comments History of Present Illness Details Documentation assistance for Misbah Huertas MD, was provided by Bart Clark,? Cylinder Loader on at 4:26 PM EST. I, Dr. Huertas, have read, observed, and verified documentation. [facility] Medical History Depression Anxiety Psoriasis High cholesterol High blood pressure Surgical History History of lumbar fusion Family History Father Asthma High blood pressure High cholesterol Diabetes Cardiovascular disease Mother High blood pressure High cholesterol Diabetes Lung cancer Alcohol abuse Social History Housing: House Patient Tobacco Use Status: Never used Tobacco e-Cigarette/Vaping Use: Currently Using Second Hand Smoke Exposure: No service: No Current occupational status: unemployed Current occupational exposures/hazards: No Cognitive needs: No Hearing needs: No Vision needs: Yes Questionnaire PHQ-9 Over the last 2 weeks, how often have you been bothered by any of the following problems? 1. Little interest or pleasure in doing things: nearly every day 2. Feeling down, depressed, or hopeless: nearly every day 3. Trouble falling or staying asleep, or sleeping too much: nearly every day 4. Feeling tired or having little energy: nearly every day 5. Poor appetite or overeating: nearly every day 6. Feeling bad about yourself - or that you are a failure or have let yourself or your family down: several days 7. Trouble concentrating on things, such as reading the newspaper or watching television: more than half the days 8. Moving or speaking so slowly that other people could have noticed. Or the opposite - being so fidgety or restless that you have been moving around a lot more than usual: not at all 9. Thoughts that you would be better off or of hurting yourself in some way: not at all Total score: 18 Source: Developed by Drs. Nadeem Diana, Glenys Aaron, Zohaib King and colleagues, with an educational rasheeda from [employer]. Thrive Questionnaire Date Thrive assessed: 03/28/25 I am a: Patient What is your living situation today?: I have a steady place to live Within the past 12 months, did the food you bought not last and you didn't have the money to get more?: Never true Within the past 12 months, did you worry whether your food would run out before you got money to buy more?: Never true Do you have trouble paying for medicines?: No Do you have trouble getting transportation to medical appointments?: No Do you have trouble paying your heating and electricity bill?: No Do you have trouble taking care of your child, family member or friend?: No Do you have trouble with day-to-day activities such as bathing, preparing meals, shopping, managing finances, etc.?: No Are you currently unemployed and looking for a job?: I choose not to answer this question Are you interested in more education?: I choose not to answer this question Please select the resources that you would like help with: None Currently or been in a relationship where the following occur: No concerns reported THRIVE Score: 0 AUDIT C Alcohol Use Questionnaire (AUDIT-C) 1. How often do you have a drink containing alcohol?: 2-4 times a month 2. How many drinks containing alcohol do you have on a typical day when you are drinking?: 1 or 2 3. How often do you have six or more drinks on one occasion?: Never Total Score: 2 ANA-7 AMB Questionnaire ANA-7 Date ANA - 7 assessed: 07/25/25 Feeling nervous, anxious, or on edge: 1 = Several days Not being able to stop or control worryin = Nearly every day Worrying too much about different things: 2 = More than half the days Trouble relaxin = Several days Being so restless that it is hard to sit still: 0 = Not at all Becoming easily annoyed or irritable: 3 = Nearly every day Feeling afraid as if something awful might happen: 2 = More than half the days Total ANA-7 score (0-4 normal; 5-9 mild; 10-14 moderate; 15-21 severe): 12 Source: Developed by Drs. Nadeem Diana, Glenys Aaron, Zohaib King and colleagues, with an educational rasheeda from [employer]. ANA-7 Assessment Billing ANA-7 Assessment Tool: ANA-7 Assessment 87811 Review of Systems Const Denies chills, Denies fatigue, Denies fever(s), Denies headache(s) and Denies weakness Eyes Denies change in vision ENT Denies dizziness, Denies headache(s), Denies hearing loss, Denies nasal congestion, Denies sinus pain, Denies sinus pressure and Denies sore throat Card Denies chest pain, Denies lightheadedness, Denies dyspnea and Denies other (palpitations) Resp Denies cough, Denies dyspnea and Denies wheezing GI Denies abdominal pain, Denies melena, Denies hematochezia, Denies change in bowel habits, Denies dyspepsia and Denies nausea Denies hematuria and Denies dysuria Musc Denies abnormal gait, Denies myalgias, Denies arthralgias, Denies numbness and Denies tingling Skin/Breast Denies rash, Denies unusual bruising and Denies wounds Neuro Denies abnormal gait, Denies dizziness, Denies headache(s), Denies memory loss, Denies numbness, Denies Sensory deficit (Neuro), Denies tingling and Denies weakness Psych Denies anxiety, Denies depression and Denies memory loss Endo Denies cold intolerance, Denies fatigue, Denies heat intolerance, Denies polydipsia and Denies polyuria Scotty/Lymph Denies easy bleeding and Denies easy bruising Aller/Immun Denies wheezing Physical exam (Primary Care) Vital Signs: Last Vital Signs Pulse 116 H 07/25/25 16:05 BP 132/74 07/25/25 16:05 Pulse Ox 96 07/25/25 16:05 Oxygen Delivery Method Room Air 07/25/25 16:05 BMI result Body Mass Index 42.1 Tobacco/Smoking Status: Tobacco use Status Tobacco use date assessed 07/25/25 07/25/25 16:10 Patient Tobacco Use Status Never used Tobacco 07/25/25 16:10 e-Cigarette/Vaping Use Currently Using 07/25/25 16:10 PHQ-9: PHQ-9 Score PHQ-9: Total score 18 07/25/25 16:17 Thrive Assessment: Date of Thrive Assessment Date Thrive assessed 03/28/25 07/25/25 16:10 Currently or been in a relationship where the following occur: No concerns reported Const General: no acute distress, well developed, alert and awake Nutritional Appearance: well nourished Orientation/consciousness: patient oriented x3 HENMT Head: Yes normocephalic and Yes atraumatic Ears: hearing grossly normal bilaterally and TM's normal bilaterally General nose exam: Normal external nose present and Normal nares present Mouth: Normal oral and palatal mucosa present and moist mucous membranes Teeth and gingiva: dentition normal Throat: Yes posterior oropharynx normal Eyes General: appearance normal, both eyes and all related structures Pupils: Equal, round and reactive pupils present and Pupil accommodation reflex normal EOM: EOMs intact bilaterally Neck Neck: Yes normal visual inspection, Yes no lymphadenopathy and Yes trachea midline Thyroid: Thyroid normal Carotids: no bruits Lymphatic: no lymphadenopathy noted Chest Chest palpation & inspection: normal inspection of the chest Resp Effort & Inspection: normal respiratory effort Auscultation: clear to auscultation bilaterally Cardio Rate: regular rate Rhythm: regular rhythm Heart sounds: S1 normal heart sound present, S2 normal heart sound present, no gallops, no murmurs and no rubs Bruits: no abdominal aortic bruits and no carotid bruits GI Palpation (GI): No Abdominal aortic bruit present, Soft to palpation, nontender, No hepatosplenomegaly present and No Rebound tenderness present Auscultation: normal bowel sounds General: Yes no CVA tenderness Back/Spine/Pelvis Back: no CVA tenderness Cervical Spine: cervical ROM normal and No Cervical spine tenderness Thoracic/Lumbar Spine: thoraco-lumbar ROM normal, No pain with thoraco-lumbar ROM, No thoracic spinal tenderness and No lumbar spinal tenderness Skin Lesions: no lesions Rashes: no rashes Trauma: no lacerations or abrasions Wounds: no wounds Nails: normal Neuro General: patient oriented x3 Cranial nerves: Yes Equal, round and reactive pupils present Cognition (Neuro): normal cognition Gait exam (Neuro): Normal gait present Motor exam (neuro): 5/5 motor strength present throughout Sensory Exam: No Sensory deficit (Neuro) Deep tendon reflexes (DTR's): Right patellar reflex intensity grade: 2+ and Left patellar reflex intensity grade: 2+ Extrem General: Yes normal to inspection and No edema Psych Appearance: grossly normal Affect: normal affect Attitude: cooperative Thought process: Normal thought process present Coding Level of Care Code Est Pt Level 3 (56228) Est Pt Prev Care 40-64y(17073) Diagnoses Adult general medical exam Z00.00 Elevated liver enzymes R74.8 Osteoarthritis of hip M16.9 Screening for colon cancer Z12.11 Breast cancer screening by mammogram Z12.31 Screening for cervical cancer Z12.4 Additional Codes ANA-7 Assessment Billing - ANA-7 Assessment Tool: ANA-7 Assessment 50012 ([id number]) Assessment & Plan Assessment & Plan (1) Adult general medical exam: Code(s): Z00.00 - Encounter for general adult medical examination without abnormal findings Category: Medical Plan: 55-year-old female presents for complete physical exam (2) Elevated liver enzymes: Code(s): R74.8 - Abnormal levels of other serum enzymes Category: Medical Plan: Mildly elevated liver enzymes which are improving Encouraged weight loss (3) Osteoarthritis of hip: Code(s): M16.9 - Osteoarthritis of hip, unspecified Category: Medical Plan: Has seen ortho and they recommended ongoing weight loss Continue working on weight loss and follow-up with ortho (4) Screening for colon cancer: Code(s): Z12.11 - Encounter for screening for malignant neoplasm of colon Category: Medical Plan: She has an upcoming appointment with [facility] (5) Breast cancer screening by mammogram: Code(s): Z12.31 - Encounter for screening mammogram for malignant neoplasm of breast Category: Medical Plan: Up-to-date with mammogram and her next appointment is in August (6) Screening for cervical cancer: Code(s): Z12.4 - Encounter for screening for malignant neoplasm of cervix Category: Medical Plan: Followed by Dr. Corrales and has upcoming appointment. Follow-up as recommended Up-to-date Orders: Orders Rheumatoid Factor Today M25.50 - Pain in unspecified joint Microalbumin, Random (w Creat) Today I10 - Essential (primary) hypertension, Z00.00 - Encounter for general adult medical examination without abnormal findings TSH reflex Free T4 Today Z00.00 - Encounter for general adult medical examination without abnormal findings Erythrocyte Sedimentation Rate Today M25.50 - Pain in unspecified joint CRP High Sensitivity Today M25.50 - Pain in unspecified joint VICENTA Reflex Titer and Pattern Today M25.50 - Pain in unspecified joint Cyclic Citrullinated Peptide Today M25.50 - Pain in unspecified joint Comprehensive [place]. Panel Fast Today R74.8 - Abnormal levels of other serum enzymes, Z00.00 - Encounter for general adult medical examination without abnormal findings Lipid Panel Today E78.00 - Pure hypercholesterolemia, unspecified, Z00.00 - Encounter for general adult medical examination without abnormal findings UA CC w/rflx Micro + Cult Today Z00.00 - Encounter for general adult medical examination without abnormal findings
--- OUTSIDE RECORDS SUMMARY | 2025-07-25 21:13 | XMS_ITS | Clinical Summary ---
Author Organization [facility] Address [address] [place] [address] Phone Care Team Providers Care Meat Hostess Name Role Phone Berna Canchola MD Primary Care Prov ider Allergies No known active allergies Medications albuterol 90 mcg/actuation inhaler Inhale 2 puffs into the lungs every 6 (six) hours as needed for wheezing. 6.7 g 03/27/2023 Active Active Problems No known active problems Social History Tobacco Use Types Packs/Day Years Used Date Smoking Tobacco: Former Cigarettes Smokeless Tobacco: Never Tobacco Cessation:Counseling Given: Not Answered Education Answer Date Recorded Are you interested [...] on file Sexual Orientation Not on file Last Filed Vital Signs Vital Sign Reading Time Taken Comments Blood Pressure 94/65 03/27/2023 3:19 PM EDT Pulse 132 03/27/2023 3:19 PM EDT Temperature 36.9 C (98.5 F) 03/27/2023 1:45 PM EDT Respiratory Rate 24 03/27/2023 1:45 PM EDT Oxygen Saturation 96% 03/27/2023 1:45 PM EDT Inhaled Oxygen Concentration - - Weight 136.1 kg (300 lb) 03/27/2023 1:45 PM EDT per pt Height - - Body Mass Index - - Plan of Treatment Health Maintenance Due Date Last Done Comments LIPID PANEL 1969 DEPRESSION SCREENING 1981 SMOKING Hx and SMOKELESS TOBACCO SCREENING 1982 HEPATITIS C SCREENING 1987 HIV ONE-TIME SCREENING (18-65 YEARS) 1987 PAP SMEAR 1990 MAMMOGRAM 2009 COLOGUARD 2014 COLONOSCOPY 2014 COLORECTAL CANCER SCREENING 2014 FIT TEST 2014 FOBT 2014 SIGMOIDOSCOPY 2014 VIRTUAL COLONOSCOPY 2014 PNEUMOCOCCAL VACCINES (50+ years) (1 of 1 - PCV) 2019 ZOSTER VACCINES (2 of 2) 10/16/2021 08/21/2021 Adult Td,Tdap Booster 02/10/2024 02/09/2014 INFLUENZA VACCINE (#1) 2025 08/21/2021, 2018 COVID-19 VACCINE ( season) 2025 10/31/2022, 11/01/2021, 03/29/2021, Additional history exists HEPATITIS A VACCINES Aged Out No long er eligible based on patient's age to complete this topic HIB VACCINES Aged Out No longer eligi ble based on patient's age to complete this topic MENINGOCOCCAL VACCINES (ACWY) Aged Out No longer eligible based on patient's age to complete this topic MENINGOCOCCAL VACCINES (B) Aged Out N o longer eligible based on patient's age to complete this topic Medical Devices Not on file Insurance [facility] [employer] [facility] [employer] [address] [place] [address] [facility] [address] [place] [address] [facility] [employer] [facility] Care Teams Meat Hostess Relationship Specialty Start Date End Date Berna Canchola MD [address] [place] [id number] PCP - General Internal Medicine 03/27/23 Additional Source Comments The information contained in this document represents components of the legal health record. It is not the complete legal health record.[facility]
--- OUTSIDE RECORDS SUMMARY | 2025-07-25 21:13 | XMS_ITS ---
Author Name [facility] Organization Unknown Care Team Organization Name Specialty Phone Email Start Date End Da te [facility] Berna Pedro Primary Care 01/15/2023 06/28/2024 [facility] Donita Luque Primary Care 09/17/20222023
== END 2025-07-25 16:42 | disposition home or self-care (01) ==
LOC: HO.HMCFM 15:59
PROVIDERS: PCP Family Medicine; Visit Provider Family Medicine
DX: Z00.00 Encounter for general adult medical examination without abnormal findings (principal); R74.8 Abnormal levels of other serum enzymes; M16.9 Osteoarthritis of hip, unspecified; Z12.11 Encounter for screening for malignant neoplasm of colon; Z12.31 Encounter for screening mammogram for malignant neoplasm of breast

== ENCOUNTER → 2025-07-25 15:58 | Outpatient (BNVA) | payer OTHER, SELFPAY | PROVIDERS: PCP Family Medicine; Visit Provider Family Medicine | DX: Z00.00 Encounter for general adult medical examination without abnormal findings (principal); R74.8 Abnormal levels of other serum enzymes; M16.9 Osteoarthritis of hip, unspecified; E78.00 Pure hypercholesterolemia, unspecified | CPT/HCPCS: 96127; 99212; 99396 ==